=== PATIENT | female | born 1945 | race African-American/Black ===

== ENCOUNTER → 2016-09-22 | Outpatient (CLI) | payer MEDICARE, OTHER ==
--- NOTE | 2016-09-23 03:02 | HKNOTE ---
DATE OF SERVICE: 09/22/2016 The patient continues to have pain in her right knee and over her right greater trochanter. She is once again diagnosed with severe arthritis of the right knee and trochanteric bursitis. We briefly discussed total knee replacement. The patient indicates that she would like to postpone total knee replacement for as long as she possibly can. MANAGEMENT: Under sterile conditions, given injection of 2 mL of Kenalog and 6 mL of 2% lidocaine i nto the right knee and into the trochanteric bursa. She will be seen again as necessary. Dictated By: THONG LUGO/YONG Conf#: [id number] DID#: [id number]
== END | disposition home or self-care (01) ==
LOC: HKI 13:37
DX: M25.561 Pain in right knee (principal); M70.61 Trochanteric bursitis, right hip
CPT/HCPCS: 20610; G0463

== ENCOUNTER → 2017-02-23 | Outpatient (CLI) | payer MEDICARE, OTHER ==
--- NOTE | 2017-02-23 11:52 | RADRPT ---
PROCEDURE: Right knee radiographs. CLINICAL INDICATION: Right knee pain. TECHNIQUE: Three views. Weight bearing. Frontal, lateral, and patellar view. COMPARISON: 04/08/2016. FINDINGS: There is no fracture or dislocation. The soft tissues are normal. There are degenerative changes with osteophytes arising from all 3 joint compartment margins. There is medial joint compartment narrowing, subarticular sclerosis, and deformity. There is no lytic or blastic lesion. There is no radiopaque foreign body. IMPRESSION: 1. Severe degenerative changes of the right knee predominately involving the medial joint compartme nt. 2. Otherwise unremarkable images of the right knee. RPTAT: QQ .Trip Beck MD, MD Date Time Electronically viewed and signed by .Trip Beck MD, MD on 02/23/2017 11:52 .R/
--- NOTE | 2017-02-24 03:00 | HKNOTE ---
DATE OF SERVICE: 02/23/2017 The patient has severe degenerative osteoarthritis of her right knee. Her most recent knee x-rays w ere reviewed today. She has exceedingly severe arthritis in the knee. The medial joint compartment is markedly narrowed. Osteophytes, subarticular sclerosis are noted. The knee has a varus deformi ty. MANAGEMENT: Patient is not yet ready for knee replacement. She would "like to continue with the co rtisone until it does not help me anymore." She lives alone. We discussed knee replacement surgery again in a reasonable amount of detail. She was advised that I have stopped operating because of my own back problems and that when the time comes for surgery she will have the operation by Dr. Naqvi. Patient was introduced to Dr. Naqvi today. Under sterile conditions, she was given an injection of 2 mL of Kenalog with 6 mL of 2% lidocaine in to the knee. She will return to me further cortisone injections, but will see Dr. Naqvi when she is ready to pr oceed with surgery. At her request, she was given a refill prescription for [place] 10/325. Dictated By: THONG LUGO/YONG Conf#: [id number] DID#: [id number]
== END | disposition home or self-care (01) ==
LOC: HKI 10:37
DX: M17.11 Unilateral primary osteoarthritis, right knee (principal)
CPT/HCPCS: 20610; 73562; G0463